=== PATIENT | female | born 1940 ===

== ENCOUNTER 2016-12-30 13:27 | Emergency (ER) | payer MEDICARE ==
[2016-12-30 13:28] VITALS: BMI 24.5
[2016-12-30 13:41] VITALS: RESP 16; TEMP 98.4
--- NOTE | 2016-12-30 14:30 | ED PDOC ---
Arrival/HPI - General Chief Complaint: Abnormal Skin Integrity Time Seen by Provider: 12/30/16 14:00 Historian: Patient - History of Present Illness Narrative History of Present Illness (Text): 12/30/16 14:15 Marice Garcia is a 76 year old male, whose past medical history includes hypertension, who presents to the complaining of irritation to bilateral axilla area for two weeks. Patient reports that 2 weeks ago she went to get a breast ultrasound and ever since the application of gel, the patient has been feeling irritation and itchiness to bilateral axilla are. Patient notes she began to shower twice a day to see if there was some relief, but there was no significant difference. Patient denies fever, shortness of breath, chest pain, headache or other complaints. PMD: Dr. Grier 12/30/16 18:37 Time/Duration: > week (2 weeks) Symptom Onset: Gradual Symptom Course: Unchanged Past Medical History - Provider Review Nursing Documentation Reviewed: Yes - Tetanus Immunization Tetanus Immunization: Unknown - Cardiac Hx Hypertension: Yes Hx Pacemaker: No - Pulmonary Hx Respiratory Disorders: No - Neurological Hx Neurological Disorder: No Hx Paralysis: No - HEENT Hx HEENT Disorder: Yes Hx Cataracts: Yes (HAD SURGERY) - Renal Hx Renal Disorder: No - Endocrine/Metabolic Hx Endocrine Disorders: No - Hematological/Oncological Hx Blood Disorders: Yes Hx Anemia: Yes Hx Blood Transfusions: No - Integumentary Hx Dermatological Disorder: No - Musculoskeletal/Rheumatological Hx Musculoskeletal Disorders: Yes Hx Back Pain: Yes (LUMBAR) - Gastrointestinal Hx Gastrointestinal Disorders: Yes (CONSTIPATION) Hx Gastritis: Yes - Genitourinary/Gynecological Hx Genitourinary Disorders: No - Psychiatric Hx Substance Use: No - Surgical History Hx Appendectomy: Yes Hx Cataract Extraction: Yes (BILATERAL) Other/Comment: EXC.BILATERAL axillary cysts - Anesthesia Hx Anesthesia: Yes - Suicidal Assessment Feels Threatened In Home Enviroment: No Family/Social History - Physician Review Nursing Documentation Reviewed: Yes Family/Social History: Unknown Family HX Smoking Status: Never Smoked Hx Alcohol Use: No Hx Substance Use: No Hx Substance Use Treatment: No Allergies/Home Meds Allergies/Adverse Reactions: Allergies No Known Allergies Allergy (Verified 12/30/16 13:31) Home Medications: Home Meds Medication Instructions Recorded Confirmed Furosemide [Furosemide] 40 mg PO DAILY 12/26/14 12/30/16 Losartan/Hydrochlorothiazide 1 tab PO DAILY 12/26/14 12/30/16 [Hyzaar 100-25 Tablet] Spironolactone [Aldactone] 25 mg PO DAILY 12/26/14 12/30/16 Metoprolol Tartrate [Lopressor] 50 mg PO BID 12/30/16 12/30/16 Multivit-Min/FA/Lycopen/Lutein 1 tab PO DAILY 12/30/16 12/30/16 [Centrum Silver Tablet] Review of Systems - Review of Systems Constitutional: absent: Fevers Respiratory: absent: SOB Cardiovascular: absent: Chest Pain Skin: Other (skin irritation on bilateral axilla region) Physical Exam Vital Signs Reviewed: Yes Vital Signs Temp Pulse Resp BP Pulse Ox 12/30/16 15:13 75 16 145/62 100 12/30/16 13:34 98.4 F 70 16 160/81 H 96 Temperature: Afebrile Blood Pressure: Hypertensive Pulse: Regular Respiratory Rate: Normal Appearance: Positive for: Well-Appearing, Non-Toxic, Comfortable Pain Distress: None Mental Status: Positive for: Alert and Oriented X 3 - Systems Exam Head: Present: Atraumatic, Normocephalic Pupils: Present: PERRL Extroacular Muscles: Present: EOMI Conjunctiva: Present: Normal Respiratory/Chest: Present: Clear to Auscultation, Good Air Exchange. No: Respiratory Distress, Accessory Muscle Use Cardiovascular: Present: Regular Rate and Rhythm, Normal S1, S2. No: Murmurs Neurological: Present: GCS=15, CN II-XII Intact, Speech Normal Skin: Present: Warm, Dry, Normal Color, Erythematous (erythematous patches in bilateral axilla consistent with excema/contact dermatitis). No: Rashes Psychiatric: Present: Alert, Oriented x 3, Normal Insight, Normal Concentration Medical Decision Making ED Course and Treatment: 12/30/16 Impression: 76 year old female with erythematous patches in bilateral axilla. Differential Diagnosis included but are not limited to: allergic reaction Plan: -- Benadryl -- Reassess and disposition Progress Notes: Reevaluation: On reevaluation the patient is in no acute distress. I have discussed the results and plan with the patient, who expresses understanding. Patient given the opportunity to ask question, all questions were answered and there is agreement with the plan to discharge the patient home. Patient is stable for discharge. She was advised to keep the area clean, but moist and to follow up with vacuum truck driver. - Medication Orders Current Medication Orders: Discontinued Medications Diphenhydramine HCl (Benadryl) 12.5 mg PO STAT STA Stop: 12/30/16 14:41 Last Admin: 12/30/16 14:50 Dose: 12.5 mg - Scribe Statement The provider has reviewed the documentation as recorded by the Chris Joe Provider Scribe Attestation: All medical record entries made by the Scribe were at my direction and personally dictated by me. I have reviewed the chart and agree that the record accurately reflects my personal performance of the history, physical exam, medical decision making, and the department course for this patient. I have also personally directed, reviewed, and agree with the discharge instructions and disposition. Disposition/Present on Arrival - Present on Arrival Any Indicators Present on Arrival: No History of DVT/PE: No History of Uncontrolled Diabetes: No Urinary Catheter: No History of Decub. Ulcer: No History Surgical Site Infection Following: None - Disposition Have Diagnosis and Disposition been Completed?: Yes Diagnosis: Contact dermatitis Disposition: HOME/ ROUTINE Disposition Time: 15:00 Patient Plan: Discharge Condition: IMPROVED Discharge Instructions (ExitCare): Contact Dermatitis (ED) Additional Instructions: FOLLOW UP WITH DEPUTY SHERIFF K[facility] HANDLER IN 1-2 DAYS RETURN TO THE ED WITH ANY WORSENING OR CONCERNING SYMPTOMS. Prescriptions: Hydrocortisone 1% Cream [Cortizone 1% Cream] 1 appl TP BID #1 tube Referrals: Indra Dykes MD [Primary Care Provider] - Follow up with primary Forms: [employer] (Welsh)
[2016-12-30] MEDS ORDERED: DiphenhydrAMINE 12.5 mg/5 ml LIQ UD (5 ml) PO STA (14:40)
[2016-12-30 15:23] VITALS: BP 145/62; PULSE 75; O2SAT 100
== END 2016-12-30 15:13 | disposition home or self-care (01) ==
LOC: ED 13:27
DX: L25.9 Unspecified contact dermatitis, unspecified cause (principal); I10 Essential (primary) hypertension

== ENCOUNTER 2017-11-11 16:25 | Inpatient (IN) | payer MEDICARE ==
[2017-11-11 16:37] VITALS: BMI 23.8
--- NOTE | 2017-11-11 16:50 | ED PDOC ---
Arrival/HPI - General Time Seen by Provider: 11/11/17 16:34 Historian: Patient - History of Present Illness Narrative History of Present Illness (Text): 11/11/17 16:43 77 year old female, pmh including htn, ndka, complaining of epigastric and lt. shoulder pain x 1 week. Pt. stated that she has epigastric pain, associated with lt. shoulder pain, no tearing pain, no fever or chills, no palpitation, no numbness or tingling, no change in vision, called the pmd and told to come to the Emergency room for evaluation. Pt. has no leg or back pain, no palpitation, no lower abdominal pain, no other medical or psychological complaints. Past Medical History - Provider Review Nursing Documentation Reviewed: Yes - Tetanus Immunization Tetanus Immunization: Unknown - Cardiac Hx Hypertension: Yes Hx Pacemaker: No - Pulmonary Hx Respiratory Disorders: No - Neurological Hx Neurological Disorder: No Hx Paralysis: No - HEENT Hx HEENT Disorder: Yes Hx Cataracts: Yes (HAD SURGERY) - Renal Hx Renal Disorder: No - Endocrine/Metabolic Hx Endocrine Disorders: No - Hematological/Oncological Hx Blood Disorders: Yes Hx Anemia: Yes Hx Blood Transfusions: No - Integumentary Hx Dermatological Disorder: No - Musculoskeletal/Rheumatological Hx Musculoskeletal Disorders: Yes Hx Back Pain: Yes (LUMBAR) - Gastrointestinal Hx Gastrointestinal Disorders: Yes (CONSTIPATION) Hx Gastritis: Yes - Genitourinary/Gynecological Hx Genitourinary Disorders: No - Psychiatric Hx Substance Use: No - Surgical History Hx Appendectomy: Yes Hx Cataract Extraction: Yes (BILATERAL) Other/Comment: EXC.BILATERAL axillary cysts - Anesthesia Hx Anesthesia: Yes - Suicidal Assessment Feels Threatened In Home Enviroment: No Family/Social History - Physician Review Nursing Documentation Reviewed: Yes Family/Social History: Unknown Family HX Smoking Status: Never Smoked Hx Alcohol Use: No Hx Substance Use: No Hx Substance Use Treatment: No Allergies/Home Meds Allergies/Adverse Reactions: Allergies No Known Allergies Allergy (Verified 12/30/16 13:31) Home Medications: Home Meds Medication Instructions Recorded Confirmed Furosemide 40 mg PO DAILY 12/26/14 12/30/16 Losartan/Hydrochlorothiazide 1 tab PO DAILY 12/26/14 12/30/16 [Hyzaar 100-25 Tablet] Spironolactone [Aldactone] 25 mg PO DAILY 12/26/14 12/30/16 Metoprolol Tartrate [Lopressor] 50 mg PO BID 12/30/16 12/30/16 Multivit-Min/FA/Lycopen/Lutein 1 tab PO DAILY 12/30/16 12/30/16 [Centrum Silver Tablet] Review of Systems - Review of Systems Constitutional: absent: Fatigue, Fevers Eyes: absent: Vision Changes ENT: absent: Hearing Changes Respiratory: absent: SOB, Cough Cardiovascular: absent: Chest Pain Gastrointestinal: Abdominal Pain. absent: Diarrhea, Nausea, Vomiting Musculoskeletal: Arthralgias. absent: Back Pain, Joint Swelling, Myalgias Skin: absent: Rash, Pruritis Neurological: absent: Headache, Dizziness Psychiatric: absent: Anxiety, Depression, Suicidal Ideation Physical Exam Vital Signs Reviewed: Yes Vital Signs Temp Pulse Resp BP Pulse Ox 11/11/17 19:06 209/94 H 11/11/17 16:38 98.3 F 68 18 201/104 H 97 Temperature: Afebrile Blood Pressure: Hypertensive Pulse: Regular Respiratory Rate: Normal Appearance: Positive for: Well-Appearing, Non-Toxic Pain Distress: Moderate Mental Status: Positive for: Alert and Oriented X 3 - Systems Exam Head: Present: Atraumatic, Normocephalic Pupils: Present: PERRL Extroacular Muscles: Present: EOMI Conjunctiva: Present: Normal Mouth: Present: Moist Mucous Membranes Pharnyx: No: ERYTHEMA, EXUDATE Nose (External): Present: Atraumatic. No: Abrasion, Contusion, Laceration Nose (Internal): Present: Normal Inspection, No Active Bleeding. No: Rhinorrhea Neck: Present: Normal Range of Motion Respiratory/Chest: Present: Clear to Auscultation, Good Air Exchange. No: Respiratory Distress, Accessory Muscle Use Cardiovascular: Present: Regular Rate and Rhythm, Normal S1, S2. No: Murmurs Abdomen: Present: Tenderness (+epigastric tenderness, no cva tenderness). No: Distention, Peritoneal Signs, Rebound, Guarding Back: Present: Normal Inspection. No: CVA Tenderness, Midline Tenderness, Paraspinal Tenderness, Pain with Leg Raise, Decubitus Ulcer Upper Extremity: Present: Normal Inspection, Other (Lt. shoulder: no tenderness or swelling, FROM without limitation, sensation intact, motor 5/5, +radial pulse, capillary refill< 2 seconds, neurovascular intact. ). No: Cyanosis, Edema Lower Extremity: Present: Normal Inspection. No: Edema Neurological: Present: GCS=15, CN II-XII Intact, Speech Normal, Motor Func Grossly Intact, Gait Normal, Memory Normal Skin: Present: Warm, Dry, Normal Color. No: Rashes Psychiatric: Present: Alert, Oriented x 3, Normal Insight, Normal Concentration Medical Decision Making ED Course and Treatment: 11/11/17 16:54 -Labs/trop/bnp/lipase/ua -ekg -cxr -gallbladder sonogram -IVF @ 75cc/hr/pepcid -Observe and reassess 11/11/17 18:29 -EKG: NSR @ 67 BPM, no ST elevation or depression, no T wave inversion -Chest X-Ray show Similar cardiomegaly. No interval acute cardiopulmonary pathology noted. -Gallbladder sonogram show No evidence of cholelithiasis. Normal caliber CBD for age. -Labs show no acute findings except BUN 30 and creatine 1.3 (dehydrated, IVF ordered) -Mag within normal limit -Lipase within normal limit -BNP is 1590 with no previous comparison, cxr show cardiomegally, IV lasix 20 ordered for her BNP and her BP -Trop is negative for the first set -Urinalysis ordered and pending -Pt. still has pain, morphine/nitro SL with aspirin ordered, will admit her for CHF and ACS rule out. 11/11/17 18:30 -I spoke to the hospitalist DR. Cruz about this case, discussed about the labs/radiology result and agreed to admit. 11/11/17 18:47 -Pt. now request to be admitted to Dr. Ross's service as Dr. Ross pass by the ER (pt. stated that Dr. Ross was her PCP), I spoke to Dr. Ross about this case, discussed about the labs/radiology result and agreed to admit to her service and request Dr. Kumar (Dietitian) and Dr. Bynum for the consult. -I paged the hospitalist, pending for call back. -Case discussed with Dr. Buck, he agreed on the treatment and admission plan. 11/11/17 18:52 -I spoke to Dr. Cruz about the situation, Dr. Cruz awared of the admission goes to Dr. Ross. 11/11/17 20:19 -I was inform by the ENVELOPE PATTERNMAKER that the patient's BP is still high, vasotec 1.25mg IV ordered. She will go up to the telemetry floor soon. - Lab Interpretations Lab Results: 11/11/17 17:15 11/11/17 17:15 Lab Results 11/11/17 17:15: Digoxin < 0.4 L 11/11/17 17:15: WBC 6.8, RBC 3.93, Hgb 12.0, Hct 36.7, MCV 93.4, MCH 30.5, MCHC 32.7, RDW 13.7, Plt Count 214, MPV 10.1, Gran % 56.6, Lymph % (Auto) 25.9, [place] % (Auto) 9.5 H, Eos % (Auto) 7.6 H, Baso % (Auto) 0.4, Gran # 3.87, Lymph # (Auto) 1.8, [place] # (Auto) 0.7 H, Eos # (Auto) 0.5, Baso # (Auto) 0.03 11/11/17 17:15: Sodium 141, Potassium 4.4, Chloride 107, Carbon Dioxide 24, Anion Gap 15, BUN 30 H, Creatinine 1.3 H, Est GFR ( Amer) 48, Est GFR (Non-Af Amer) 40, Random Glucose 122 H, Calcium 8.9, Magnesium 2.0, Total Bilirubin 0.4, AST 34, ALT 23, Alkaline Phosphatase 97, Lactate Dehydrogenase 526, Total Creatine Kinase 52, Troponin I 0.01, NT-Pro-B Natriuret Pep 1590 H, Total Protein 7.6, Albumin 3.9, Globulin 3.8, Albumin/Globulin Ratio 1.0 L, Lipase 31 - RAD Interpretation Radiology Orders: 11/11/17 16:50 CHEST PORTABLE [RAD] Stat GALL BLADDER [US] Stat Chest xray: Date of service: 11/11/2017 HISTORY: epigastric pain x 1 week COMPARISON: 04/10/2014 FINDINGS: LUNGS: No active pulmonary disease. PLEURA: No significant pleural effusion identified, no pneumothorax apparent. CARDIOVASCULAR: Cardiomegaly-similar. Pulmonary vasculature probably within normal limits. OSSEOUS STRUCTURES: No significant abnormalities. VISUALIZED UPPER ABDOMEN: Normal. OTHER FINDINGS: None. IMPRESSION: Similar cardiomegaly. No interval acute cardiopulmonary pathology noted. Gallbladder sonogram: Date of service: 11/11/2017 HISTORY: epigastric pain x 1 week COMPARISON: Correlation is made to chest CT scan of the chest, abdomen pelvis dated 04/20/19 17 TECHNIQUE: Sonographic evaluation of the right upper quadrant of the abdomen. FINDINGS: LIVER: Measures 14.6 cm in length. Normal echogenicity of the liver parenchyma. No mass. No intrahepatic bile duct dilatation. GALLBLADDER: Unremarkable. No gallstones. COMMON BILE DUCT: Measures 7 mm. No stones. Not dilated. PANCREAS: Unremarkable as visualized. No mass. No ductal dilatation. RIGHT KIDNEY: Measures 11.8 x 4.6 x 5.2 cm in length. Upper pole cyst measuring 3.0 x 2.4 x 2.2 cm. Lower pole cyst measuring 4.2 x 3.7 x 3.2 cm. Normal echogenicity. No calculus, mass, or hydronephrosis. AORTA: No aneurysmal dilatation. IVC: Unremarkable. OTHER FINDINGS: None . IMPRESSION: No evidence of cholelithiasis. Normal caliber CBD for age. Mud Analysis Supervisor: Radiologist - EKG Interpretation EKG Interpretation (Text): 11/11/17 16:55 -EKG: NSR @ 67 BPM, no ST elevation or depression, no T wave inversion Interpreted by ED Physician: Yes Type: 12 lead EKG Comparison: Com.w/previous EKG - Medication Orders Current Medication Orders: Discontinued Medications Aspirin (Aspirin) 325 mg PO STAT STA Stop: 11/11/17 18:29 Last Admin: 11/11/17 19:06 Dose: 325 mg Famotidine (Pepcid) 20 mg IVP STAT STA Stop: 11/11/17 16:51 Last Admin: 11/11/17 17:15 Dose: 20 mg IVP Administration Document 11/11/17 17:15 HI (Rec: 11/11/17 17:29 HI [facility]) Charges for Administration # of IVP Administrations 1 Furosemide (Lasix) 20 mg IVP ONCE ONE Stop: 11/11/17 18:29 Last Admin: 11/11/17 19:06 Dose: 20 mg MAR Blood Pressure Document 11/11/17 19:06 HI (Rec[facility] 11[facility]11/17 19:06 [facility] Blood Pressure Blood Pressure (100/60-150/90) 209/94 IVP Administration Document 11/11/17 19:06 HI (Rec: 11/11/17 19:06 [email or web address] Charges for Administration # of IVP Administrations 1 Morphine Sulfate (Morphine) 4 mg IVP STAT STA Stop: 11/11/17 18:29 Last Admin: 11/11/17 19:06 Dose: 4 mg MAR Pain Assessment Document 11/11/17 19:06 HI (Rec: 11/11/17 19:06 [facility] Pain Reassessment Is this a pain reassessment? Yes Sleep Is patient sleeping during reassessment? No Pain Scale Used Protocol: PSCALES Pain Scale Used Numeric Location Pain Location Body Site Chest IVP Administration Document 11/11/17 19:06 HI (Rec: 11/11/17 19:06 [email or web address] Charges for Administration # of IVP Administrations 1 Nitroglycerin (Nitrostat Sl Tab) 0.3 mg SL STAT STA Stop: 11/11/17 18:29 Last Admin: 11/11/17 19:07 Dose: 0.3 mg - PA / STRINGING MACHINE OPERATOR / Resident Statement MD/DO has reviewed & agrees with the documentation as recorded. Disposition/Present on Arrival - Present on Arrival Any Indicators Present on Arrival: No History of DVT/PE: No History of Uncontrolled Diabetes: No Urinary Catheter: No History of Decub. Ulcer: No History Surgical Site Infection Following: None - Disposition Have Diagnosis and Disposition been Completed?: Yes Diagnosis: CHF (congestive heart failure), Epigastric pain Disposition: HOSPITALIZED Disposition Time: 18:31 Patient Plan: Admission, Observation, Telemetry Patient Problems: Current Active Problems Problem Status Onset CHF (congestive heart failure) Acute Epigastric pain Acute Condition: GUARDED
[2017-11-11] MEDS ORDERED: Sodium Chloride 0.9% 1,000 ML IV SCH (17:00)
--- NOTE | 2017-11-11 17:14 | RAD ---
Date of service: 11/11/2017 HISTORY: epigastric pain x 1 week COMPARISON: 04/10/2014 FINDINGS: LUNGS: No active pulmonary disease. PLEURA: No significant pleural effusion identified, no pneumothorax apparent. CARDIOVASCULAR: Cardiomegaly-similar. Pulmonary vasculature probably within normal limits. OSSEOUS STRUCTURES: No significant abnormalities. VISUALIZED UPPER ABDOMEN: Normal. OTHER FINDINGS: None. IMPRESSION: Similar cardiomegaly. No interval acute cardiopulmonary pathology noted.
[2017-11-11 17:34] LABS: BASO # 0.03 K/mm3 (0.0-2.0); BASO % 0.4 % (0.0-3.0); EOS # 0.5 (0.0-0.7); EOS % 7.6 % (1.5-5.0); GRAN # 3.87 (1.4-6.5); GRAN % 56.6 % (50.0-68.0); LYMPH # 1.8 (1.2-3.4); LYMPH % 25.9 % (22.0-35.0); MEAN CELL VOLUME 93.4 fl (80.0-105.0); MEAN CORPUSCULAR HEMOGLOBIN 30.5 pg (25.0-35.0); MEAN CORPUSCULAR HGB CONC 32.7 g/dl (31.0-37.0); MEAN PLATELET VOLUME 10.1 fl (7.0-11.0); MONO # 0.7 (0.1-0.6); MONO % 9.5 % (1.0-6.0); RBC 3.93 10^6/uL (3.5-6.1); RED CELL DISTRIBUTION WIDTH 13.7 % (11.5-14.5); WHITE BLOOD COUNT 6.8 10^3/ul (4.5-11.0)
[2017-11-11 17:44] LABS: ALBUMIN 3.9 g/dL (3.0-4.8); CALCIUM 8.9 mg/dL (8.4-10.5)
[2017-11-11 17:55] LABS: TROPONIN I 0.01 ng/mL
--- NOTE | 2017-11-11 18:04 | US ---
Date of service: 11/11/2017 HISTORY: epigastric pain x 1 week COMPARISON: Correlation is made to chest CT scan of the chest, abdomen pelvis dated 04/19/2016 TECHNIQUE: Sonographic evaluation of the right upper quadrant of the abdomen. FINDINGS: LIVER: Measures 14.6 cm in length. Normal echogenicity of the liver parenchyma. No mass. No intrahepatic bile duct dilatation. GALLBLADDER: Unremarkable. No gallstones. COMMON BILE DUCT: Measures 7 mm. No stones. Not dilated. PANCREAS: Unremarkable as visualized. No mass. No ductal dilatation. RIGHT KIDNEY: Measures 11.8 x 4.6 x 5.2 cm in length. Upper pole cyst measuring 3.0 x 2.4 x 2.2 cm. Lower pole cyst measuring 4.2 x 3.7 x 3.2 cm. Normal echogenicity. No calculus, mass, or hydronephrosis. AORTA: No aneurysmal dilatation. IVC: Unremarkable. OTHER FINDINGS: None . IMPRESSION: No evidence of cholelithiasis. Normal caliber CBD for age.
[2017-11-11] MEDS ORDERED: Morphine 4 mg/ml ISec IVP STA (18:28)
[2017-11-11 20:09] LABS: PH,URINE 6.5 (4.7-8.0); URINE BILIRUBIN NEGATIVE (NEGATIVE); URINE BLOOD TRACE-INTACT (NEGATIVE); URINE GLUCOSE (UA) NEGATIVE (NEGATIVE); URINE LEUKOCYTE ESTERASE NEGATIVE Leu/uL (NEGATIVE); URINE PROTEIN TRACE mg/dL (<30 mg/dL); URINE UROBILINOGEN 0.2 E.U./dL (<1 E.U./dL)
[2017-11-11 20:10] LABS: URINE APPEARANCE CLEAR (CLEAR); URINE COLOR LIGHT YELLOW (YELLOW)
[2017-11-11] MEDS ORDERED: EnalaprilAT 1.25 mg/ml Inj IVP STA (20:18)
[2017-11-11 20:20] LABS: URINE BACTERIA NEG (NEG); URINE EPITHELIAL CELLS 0 - 2 /hpf (0-5); URINE RBC 0 - 2 /hpf (0-2); URINE WBC NEGATIVE /hpf (0-6)
--- NOTE | 2017-11-12 07:19 | CARD ---
APPROVED REPORT Date of service: 11/11/2017 EKG Measurement Heart [id number] VT 140P0 [id number] <Conclusion> Normal sinus rhythm Q in lll PRWP LVH by voltage NSSTW changes
--- NOTE | 2017-11-12 08:50 | HP ---
The patient was seen and examined on the bedside in the emergency room on 11/11/2017. This history and physical is for 11/11/2017. CHIEF COMPLAINTS: Epigastric pain, shoulder pain. HISTORY OF PRESENT ILLNESS: Ms. Marcie Garcia, 77-year-old my private patient, well known from my office and last hospital admissions. Came with pain in the epigastric and left shoulder. The patient states that she has epigastric pain associated with shoulder pain. No tearing pain. No fever, chills. No palpitation. No numbness or tingling sensation. No change in vision. The patient has no leg or back pain. No headache. No dizziness. PAST MEDICAL HISTORY: Hypertension, cataract surgery, anemia, back pain, constipation, gastritis, appendectomy, bilateral axillary cyst. FAMILY HISTORY: Father and mother, noncontributory. HABITS: Never smoked. No drugs. No ethanol. ALLERGIES: THE PATIENT IS NOT ALLERGIC WITH ANY MEDICATIONS. HOME MEDICATIONS: Furosemide, losartan, spironolactone, metoprolol, multivitamins. REVIEW OF SYSTEMS: The patient was seen and examined on the bedside. was standing on the bedside also in ER. No fever. No chills. No fatigue. No vision changes. No hearing changes. No shortness of breath or cough. No chest pain. No diarrhea, nausea, vomiting. No back pain, joint swelling, myalgia. No rash or pruritus. No headache or dizziness. No anxiety, depression or suicidal ideations. PHYSICAL EXAMINATION: VITAL SIGNS: Temperature 98.3, pulse 68, respiratory rate 18, blood pressure 201/104, pulse 97. HEENT: Head normocephalic, atraumatic. Eyes PERRLA. Extraocular muscles intact. Conjunctivae clear. Nose patent. Mucous membrane moist. NECK: Supple. No carotid bruit. No JVD or thyromegaly. CHEST: Bilaterally symmetrical. HEART: S1 and S2 positive. LUNGS: Clear to auscultation. ABDOMEN: Soft. Bowel sounds positive. No organomegaly. EXTREMITIES: No edema. No cyanosis. NEUROLOGICAL: The patient is awake and alert. Follows simple commands. LABORATORY DATA: White blood cells 6.8, hemoglobin 12, hematocrit 36.7, platelets of 214. Sodium 141, potassium 4.4, BUN noted , creatinine 1.3, glucose 122. ASSESSMENT AND PLAN: Ms. Marcie Ivancic, 77-year-old lady with renal insufficiency, hyperglycemia. Chest x-ray shows cardiomegaly. Ultrasound of the abdomen done. No evidence of cholelithiasis. Normal caliber common bile duct for age. EKG done. Has exacerbation of congestive heart failure, epigastric pain, accelerated hypertension, noncompliant with her medications, cataract surgery, history of anemia, history of back pain, constipation, history of appendectomy. We admitted the patient. Consulted called with Dr. Kumar and Dr. Bynum. Last blood pressure was 127/78. Started on Lasix and spironolactone. Gastrointestinal, deep venous thrombosis prophylaxis. Repeat labs. We will follow up. Ana Ross MD MTDD
[2017-11-12] MEDS: Multivitamin With Minerals Tab PO SCH (10:26)
--- NOTE | 2017-11-12 10:34 | RAD ---
Date of service: 11/12/2017 PROCEDURE: Radiographs of the Left Shoulder HISTORY: pain COMPARISON: No prior. FINDINGS: BONES: No acute fracture or destructive bony lesion identified. JOINTS: No dislocation identified however degenerative changes seen the acromioclavicular and glenohumeral joints with potential limited cephalad subluxation of the humerus relative to the glenoid process. SOFT TISSUES: Calcific tendinopathy is suggested superolateral to the greater tuberosity proximal left humerus. OTHER FINDINGS: None. IMPRESSION: No acute fracture dislocation although limited subluxation of left humerus is question cephalad. This is not a definitive finding and can be simulated by positioning. Follow-up MRI or CT can be utilized for added characterization. Calcific tendinopathy suggested.
[2017-11-12 10:53] LABS: IRON 55 ug/dL (45-180)
[2017-11-12 10:58] LABS: TROPONIN I 0.04 ng/mL
[2017-11-12 11:02] LABS: % IRON SATURATION 18 % (20-55); TOTAL IRON BINDING CAPACITY 310 ug/dL (265-497)
[2017-11-12] MEDS ORDERED: MethylPREDNISolone Depo 40 mg/ml Inj IM ONE (13:02)
[2017-11-12] MEDS ORDERED: Bupivacaine 0.5% Inj(30mL) IJ ONE (13:02)
--- NOTE | 2017-11-12 13:55 | CON ---
DATE: 11/12/2017 REASON FOR CONSULTATION: Cardiac evaluation, admitted with right shoulder pain and epigastric pain. BRIEF CLINICAL HISTORY: This is a 77-year-old female with past medical history significant for hypertension, back pain, right shoulder pain, admitted with complaint of epigastric pain, sharp and is going all the way to the back and also right shoulder pain and the right shoulder pain is painful on movement of the right shoulder. Denies any chest pain. Denies any shortness of breath. Denies any palpitation. PAST HISTORY: Significant for hypertension, gastritis and appendicitis in the past, history of appendectomy, history of ventral hernia repair [address] Rob Santamaria. PAST SURGICAL HISTORY: Significant for cataract surgery, history of appendectomy and history of removal of bilateral axillary cyst and history of ventral hernia repair after appendectomy. SOCIAL HISTORY: Denies smoking. Denies any history of alcohol abuse. FAMILY HISTORY: Noncontributory. ALLERGIES: NO KNOWN DRUG ALLERGY TO ANY MEDICATION. CURRENT MEDICATIONS: The patient is taking furosemide, losartan, spironolactone, metoprolol, multivitamin. REVIEW OF SYSTEMS: As per HPI. PHYSICAL EXAMINATION: VITAL SIGNS: As follows: Temperature afebrile, heart rate 71, blood pressure ____. HEENT: PERRLA, intact. NECK: Supple. No carotid bruits or thyromegaly. CHEST: Clear to auscultation. HEART: S1 and S2 regular. ABDOMEN: Soft. EXTREMITIES: Clubbing and cyanosis negative. DATA: EKG shows normal sinus, nonspecific ST-T changes, heart rate of 67. Blood workup as follows: WBC 6.8, hemoglobin 12, hematocrit 36.7, platelet count 214. Chemistry shows sodium 141, potassium 4.4, chloride of 107, carbon dioxide 24, anion gap of 13, BUN 30, creatinine 1.3. BNP 5090. IMPRESSION: A 77-year-old female with past medical history of hypertension, questionable history of congestive heart failure, history of cataract surgery in the past, history of ventral hernia repair 20 years ago, admitted with sharp epigastric pain and right shoulder pain. X-ray consistent with mild cardiomegaly and mild pulmonary venous congestion, needs to rule out underlying coronary artery disease. No evidence of acute coronary syndrome at this time. Troponin remains negative. RECOMMENDATIONS: We will get lipid profile, TSH, hemoglobin A1c. We will get echo to assess LV function. Also, we will get stress test to see any evidence of occult coronary ischemia. The patient has baseline renal insufficiency with creatinine clearance of 40 mL. Further recommendations depending on the hospital course. Suggest anemia workup also and workup for epigastric pain. The patient's admitting blood pressure was 201/78, needs to be treated aggressively. Now, blood pressure is much better, not sure if it is secondary to acute exacerbation of pain. The patient was not on medication, but we will resume back on losartan, hydrochlorothiazide, diuretics and we will follow with you. Thank you, Dr. Ross, for providing us the opportunity in taking care of the patient, Marcie Garcia. Júnior Staton MD
[2017-11-12] MEDS: Lidocaine 5% Patch TD SCH (14:13)
--- NOTE | 2017-11-12 15:30 | RAD ---
Date of service: 11/12/2017 PROCEDURE: Radiographs of the Right Shoulder HISTORY: pain rt shoulder COMPARISON: No prior. FINDINGS: BONES: No acute fracture or destructive bony lesion identified. JOINTS: No subluxation or dislocation. Degenerative changes seen the acromioclavicular and glenohumeral joints with calcific tendinosis also suggested. SOFT TISSUES: As above. OTHER FINDINGS: None. IMPRESSION: Degenerative changes seen at the acromioclavicular and glenohumeral joints without fracture or dislocation identified.
--- NOTE | 2017-11-12 17:19 | CARD ---
APPROVED REPORT Date of service: 11/12/2017 EXAM: Two-dimensional and M-mode echocardiogram with Doppler and color Doppler. INDICATION Chest Pain LVFX 2D DIMENSIONS Left Atrium (2D)5.1 (1.6-4.0cm)IVSd1.4 (0.7-1.1cm) LVDd4.6 (3.9-5.9cm)LVOT Diameter2.0 (1.8-2.4cm) PWd1.3 (0.7-1.1cm)LVDs3.0 (2.5-4.0cm) FS (%) 35.5 %LVEF (%)65.0 (>50%) M-Mode DIMENSIONS Aortic Root3.30 (2.2-3.7cm)Aortic Cusp Exc.1.10 (1.5-2.0cm) Aortic Valve AoV Peak Lsjwagzb993.0cm/sAoV VTI51.9cmAO Peak GR.25mmHg LVOT Peak Yttqocje056.0cm/sLVOT VTI28.90cmAO Mean GR.11mmHg MINISTERIO (VMAX)1.92ms8BQY (VTI)1.28vd7IV P 1/2 Lnid131dv Mitral Valve MV E Xrtvxgpi96.7cm/sMV A Aeqtqlxr637.0cm/sE/A ratio0.5 TDI Lateral E' Peak V4.09cm/sMedial E' Peak V4.78cm/sE/Lateral E'14.8 E/Medial E'12.7 Pulmonary Valve PV Peak Eblpfmjh68.2cm/sPV Peak Grad.1mmHg Tricuspid Valve TR Peak Fdctapns358il/sRAP SJSYBZAW28fvYqYC Peak Gr.43mmHg NJCS43kePi LEFT VENTRICLE The left ventricle is normal size. There is mild concentric left ventricular hypertrophy. The left ventricular function is normal.EF-60-65% There is normal LV segmental wall motion. Transmitral Doppler flow pattern is Grade III-reversible restrictive diastolic dysfunction. No left ventricle thrombus noted on this study. There is no ventricular septal defect visualized. There is no left ventricular aneurysm. There is no mass noted in the left ventricle. RIGHT VENTRICLE The right ventricle is normal size. There is normal right ventricular wall thickness. The right ventricular systolic function is normal. ATRIA The left atrium is mildly dilated. The right atrium size is normal. The interatrial septum is intact with no evidence for an atrial septal defect. AORTIC VALVE The aortic valve is calcified and displays decreased opening. There is moderate aortic regurgitation. There is mild to moderate valvular aortic stenosis. There is no aortic valvular vegetation. MITRAL VALVE The mitral valve is thickened but opens well. Mitral regurgitation is mild to moderate. There is no mitral valve stenosis. There is no evidence of mitral valve prolapse. TRICUSPID VALVE The tricuspid valve leaflets are thickened , but open well. There is mild to moderate tricuspid regurgitation.RVSP-53 mof hg. There is mild pulmonary hypertension. There is no tricuspid valve stenosis. There is no tricuspid valve prolapse or vegetation. PULMONIC VALVE The pulmonary valve is normal in structure. There is mild pulmonic valvular regurgitation. There is no pulmonic valvular stenosis. GREAT VESSELS The aortic root is normal in size. The ascending aorta is normal in size. The pulmonary artery is normal. The IVC is normal in size and collapses >50% with inspiration. PERICARDIAL EFFUSION There is no pleural effusion. There is no pericardial effusion. <Conclusion> The left ventricle is normal size. There is mild concentric left ventricular hypertrophy. The left ventricular function is normal.EF-60-65% There is moderate aortic regurgitation. There is mild to moderate valvular aortic stenosis. Mitral regurgitation is mild to moderate. There is mild to moderate tricuspid regurgitation.RVSP-53 mof hg. There is mild pulmonary hypertension. There is mild pulmonic valvular regurgitation.
[2017-11-12 18:20] LABS: FOLATE > 20.0 ng/mL
--- NOTE | 2017-11-12 19:03 | CP.PCM.CON ---
<Ramez Clark - Last Filed: 11/12/17 19:34> History of Present Illness - History of Present Illness History of Present Illness: GI Fellow PGY4, consult note. Marcie Garcia is a 77F with history of HTN, CKD presenting with epigastric pain and shoulder pain. Patient is a poor source of history and details cannot be understood as patient rambles on when asked specific factors i.e. timing, relieving factors, aggravating factors. Shoulder pain does not appear to be associated with epigastric pain. PMHx - as above. PSHx - EGD/CSPY [place] [address] [place]. EGD normal and CSPY with transverse colon with ischemic ulceration and diverticulosis. FMHx - Unclear SocHx - Denies smoking, alcohol use. Past Patient History - Tetanus Immunizations Tetanus Immunization: Unknown - Past Medical History & Family History Past Medical History?: Yes - Past Social History Smoking Status: Never Smoked - CARDIAC Hx Cardiac Disorders: Yes Hx Hypertension: Yes - PULMONARY Hx Respiratory Disorders: No - NEUROLOGICAL Hx Neurological Disorder: No - HEENT Hx HEENT Problems: Yes Hx Cataracts: Yes (b/l sx) - RENAL Hx Chronic Kidney Disease: No - ENDOCRINE/METABOLIC Hx Endocrine Disorders: No - HEMATOLOGICAL/ONCOLOGICAL Hx Blood Disorders: Yes Hx Anemia: Yes - INTEGUMENTARY Hx Dermatological Problems: No - MUSCULOSKELETAL/RHEUMATOLOGICAL Hx Falls: No - GASTROINTESTINAL Hx Gastrointestinal Disorders: Yes (epigastric pain) - GENITOURINARY/GYNECOLOGICAL Hx Genitourinary Disorders: No - PSYCHIATRIC Hx Substance Use: No - SURGICAL HISTORY Hx Surgeries: Yes (salpingophorectomy) Hx Appendectomy: Yes Hx Orthopedic Surgery: Yes (right knee sx) Other/Comment: EXC.BILATERAL axillary cysts - ANESTHESIA Hx Anesthesia: Yes Meds Allergies/Adverse Reactions: Allergies Allergy/AdvReac Type Severity Reaction Status Date / Time No Known Allergies Allergy Verified 12/30/16 13:31 - Medications Medications: Current Medications Famotidine (Pepcid) 40 mg PO HS [facility] Furosemide (Lasix) 40 mg IVP Q12 [facility] Last Admin: 11/12/17 10:26 Dose: 40 mg Lidocaine (Lidoderm) 2 ea TD DAILY [facility] Last Admin: 11/12/17 14:13 Dose: 2 ea Losartan Potassium (Cozaar) 100 mg PO DAILY [facility] Last Admin: 11/12/17 10:26 Dose: 100 mg Metoprolol Tartrate (Lopressor) 50 mg PO BID [facility] Last Admin: 11/12/17 17:08 Dose: 50 mg Multivitamins/Minerals (Therapeutic-M Tab) 1 tab PO DAILY [facility] Last Admin: 11/12/17 10:26 Dose: 1 tab Spironolactone (Aldactone) 25 mg PO DAILY [facility] Last Admin: 11/12/17 10:27 Dose: 25 mg Physical Exam - Constitutional Appears: Non-toxic, No Acute Distress, Chronically Ill - Head Exam Head Exam: NORMAL INSPECTION - Eye Exam Eye Exam: Normal appearance - ENT Exam ENT Exam: Mucous Membranes Moist, Normal Exam - Neck Exam Neck exam: Positive for: Normal Inspection - Respiratory Exam Respiratory Exam: Clear to Auscultation Bilateral, NORMAL BREATHING PATTERN - Cardiovascular Exam Cardiovascular Exam: REGULAR RHYTHM, +S1, +S2 - GI/Abdominal Exam GI & Abdominal Exam: Normal Bowel Sounds, Soft, Tenderness. absent: Organo megaly - Extremities Exam Extremities exam: Positive for: normal inspection - Neurological Exam Neurological exam: Alert, CN II-XII Intact, Oriented x3 - Psychiatric Exam Psychiatric exam: Normal Affect, Normal Mood - Skin Skin Exam: Dry, Normal Color Results - Vital Signs Recent Vital Signs: Last Vital Signs Temp 98.6 F 11/12/17 18:00 Pulse 57 L 11/12/17 18:00 Resp 21 11/12/17 18:00 BP 172/90 H 11/12/17 18:00 Pulse Ox 95 11/12/17 06:00 - Labs Result Diagrams: 11/11/17 17:15 11/11/17 17:15 Labs: Laboratory Results - last 24 hr 11/11/17 11/12/17 11/12/17 19:07 10:30 10:30 Hemoglobin A1c Iron 55 TIBC 310 % Saturation 18 L Lactate Dehydrogenase 413 Total Creatine Kinase 45 Troponin I 0.04 D Triglycerides 61 Cholesterol 147 LDL Cholesterol Direct 68 HDL Cholesterol 59 Vitamin B12 Folate Urine Color Light yellow Urine Appearance Clear Urine pH 6.5 Ur Specific [place] 1.015 Urine Protein Trace H Urine Glucose (UA) Negative Urine Ketones Negative Urine Blood Trace-intact H Urine Nitrate Negative Urine Bilirubin Negative Urine Urobilinogen 0.2 Ur Leukocyte Esterase Negative Urine RBC 0 - 2 Urine WBC Negative Ur Epithelial Cells 0 - 2 Urine Bacteria Neg 11/12/17 11/12/17 10:30 10:30 Hemoglobin A1c 5.8 Iron TIBC % Saturation Lactate Dehydrogenase Total Creatine Kinase Troponin I Triglycerides Cholesterol LDL Cholesterol Direct HDL Cholesterol Vitamin B12 346 Folate > 20.0 Urine Color Urine Appearance Urine pH Ur Specific [place] Urine Protein Urine Glucose (UA) Urine Ketones Urine Blood Urine Nitrate Urine Bilirubin Urine Urobilinogen Ur Leukocyte Esterase Urine RBC Urine WBC Ur Epithelial Cells Urine Bacteria Assessment & Plan - Assessment and Plan (Free Text) Assessment: 77F with epigastric pain #Epigastric pain #HTN #CKD #Shoulder pain #Pulmonary HTN - RVSP 53 #Aortic and Tricuspid Valvular disease PLAN: -Abdominal U/S normal -ECHO results reviewed -Unclear etiology of epigastric pain. Broad differential (Cardiac, dyspepsia, constipation, previous colonic erosion, malignancy... other) -Recommend PPI -CT Abd/pelv with PO contrast only in setting of CKD -We could perform EGD Friday if patient will not be discharged and cardiac etiology ruled out. Otherwise, this can be done as an outpatient procedure. - Date & Time Date: 11/12/17 Time: 19:56 <Abraham Bynum V - Last Filed: 11/12/17 22:19> Meds - Medications Medications: Current Medications Furosemide (Lasix) 40 mg IVP Q12 [facility] Last Admin: 11/12/17 10:26 Dose: 40 mg Lidocaine (Lidoderm) 2 ea TD DAILY [facility] Last Admin: 11/12/17 14:13 Dose: 2 ea Losartan Potassium (Cozaar) 100 mg PO DAILY [facility] Last Admin: 11/12/17 10:26 Dose: 100 mg Metoprolol Tartrate (Lopressor) 50 mg PO BID [facility] Last Admin: 11/12/17 17:08 Dose: 50 mg Multivitamins/Minerals (Therapeutic-M Tab) 1 tab PO DAILY [facility] Last Admin: 11/12/17 10:26 Dose: 1 tab Pantoprazole Sodium (Protonix Ec Tab) 40 mg PO 0600 [facility] Spironolactone (Aldactone) 25 mg PO DAILY [facility] Last Admin: 11/12/17 10:27 Dose: 25 mg Results - Vital Signs Recent Vital Signs: Last Vital Signs Temp 98.6 F 11/12/17 18:00 Pulse 61 11/12/17 18:00 Resp 21 11/12/17 18:00 BP 172/90 H 11/12/17 18:00 Pulse Ox 95 09/26/18 06:00 - Labs Result Diagrams: 11/11/17 17:15 11/11/17 17:15 Labs: Laboratory Results - last 24 hr 11/12/17 11/12/17 11/12/17 10:30 10:30 10:30 Hemoglobin A1c 5.8 Iron 55 TIBC 310 % Saturation 18 L Lactate Dehydrogenase 413 Total Creatine Kinase 45 Troponin I 0.04 D Triglycerides 61 Cholesterol 147 LDL Cholesterol Direct 68 HDL Cholesterol 59 Vitamin B12 Folate 11/12/17 10:30 Hemoglobin A1c Iron TIBC % Saturation Lactate Dehydrogenase Total Creatine Kinase Troponin I Triglycerides Cholesterol LDL Cholesterol Direct HDL Cholesterol Vitamin B12 346 Folate > 20.0 Attending/Attestation - Attestation I have personally seen and examined this patient.: Yes I have fully participated in the care of the patient.: Yes I have reviewed all pertinent clinical information: Yes Notes (Text): This is an addendum to GI consult report dictated by the GI Fellow.The patient was seen and examined earlier. Medical records, lab studies, imagings were reviewed. Last 24 hours events reviewed. Agreed with the above treatment plan as outlined in GI Fellow 's notes with the addition of the following The etiology for her abdominal pain should include PUD colonic lesion and pancreatic lesion should be considered Ultrasound scan reviewed Negative for gallstones Patient had a colonoscopy In 01/01 it showed it was reported patient had a transverse colon ulceration/erosions Would request CT scan of abdomen and pelvis with only PO contrast as for her GFR is low Patient had duodenitis Continue PPI After review of CT Will discuss with Dr. Ross 11/12/17 22:12
--- NOTE | 2017-11-13 03:46 | PN ---
DATE: 11/12/2017 SUBJECTIVE: This is a 77-year-old female. Patient was seen and examined on the bedside on 11/12/2017, still having the pain in both shoulders especially left shoulder, having a blood pressure high, getting different medications. No fever, no chills. No nausea, vomiting, or diarrhea. No hematuria or hematochezia. No headache. No dizziness. No palpitation. PHYSICAL EXAMINATION: VITAL SIGNS: Temperature 98.6, pulse 67, respiratory rate 21, blood pressure 172/90, pulse oximetry 95% on room air. HEENT: Head: Normocephalic, atraumatic. Eyes: PERRLA. Extraocular muscles intact. Conjunctivae clear. Nose patent. Mucous membranes moist. NECK: Supple. No carotid bruit. No JVD or thyromegaly. CHEST: Bilaterally symmetrical. HEART: S1 and S2 positive. LUNGS: Clear to auscultation. ABDOMEN: Soft. Bowel sounds present. No organomegaly. EXTREMITIES: Upper both extremities especially shoulders range of motion is decreased. Lower extremities, no edema, no cyanosis. NEUROLOGIC: Patient is awake and alert. Moving all 4 extremities. No focal deficit. LABORATORY DATA: White blood cells 6.8, hemoglobin 12, hematocrit 36.7, platelets of 214. Sodium 141, potassium 4.1, BUN 30, creatinine 1.3, glucose 122. ASSESSMENT AND PLAN: Ms. Marcie Garcia is a 77-year-old female with renal insufficiency, hyperglycemia, came with epigastric pain, Gastroenterology consult called; hypertension, is on different blood pressure medications; chronic kidney disease; chronic shoulder pain bilaterally, x-rays were done; pulmonary hypertension; right ventricular systolic pressure 53, aortic and tricuspid valve disease. X-rays of the left shoulder shows no acute fracture, dislocation, although limited subluxation of the left humerus, this is not a definite diagnosis as per radiologist, need MRI. Right shoulder also shows degenerative joint disease. Abdominal ultrasound reviewed. Patient has history of gastritis, appendicitis, appendectomy, ventral hernia repair, congestive heart failure, cataract surgery. The patient was admitted with blood pressure of 201/78, getting aggressive treatment for blood pressure. We will call Pulmonary consult. Discussion done with patient. Gastrointestinal and deep venous thrombosis prophylaxes. [facility] We will follow up with you. Ana Ross MD ISABELLA
[2017-11-13] MEDS ORDERED: Oxycodone/Acetaminophen 2.5/325 mg Tab PO STA (06:03)
[2017-11-13] MEDS ORDERED: Barium Sulfate Susp 2.1% w/v, 2.0% w/w 450 mL Bottle PO ONE (06:31)
[2017-11-13] MEDS: Pantoprazole 40 mg EC Tab PO SCH (06:50)
[2017-11-13 08:07] LABS: HEMOGLOBIN 12.6 g/dL (12.0-16.0); MEAN CELL VOLUME 92.6 fl (80.0-105.0); MEAN CORPUSCULAR HEMOGLOBIN 30.1 pg (25.0-35.0); MEAN CORPUSCULAR HGB CONC 32.6 g/dl (31.0-37.0); MEAN PLATELET VOLUME 9.7 fl (7.0-11.0); RBC 4.18 10^6/uL (3.5-6.1); RED CELL DISTRIBUTION WIDTH 13.9 % (11.5-14.5); WHITE BLOOD COUNT 7.8 10^3/ul (4.5-11.0)
[2017-11-13 08:22] LABS: CALCIUM 9.1 mg/dL (8.4-10.5)
--- NOTE | 2017-11-13 08:55 | CON ---
DATE: 11/12/2017 ORTHOPEDIC CONSULT REPORT LOCATION: Room 271, bed 1. TIME SEEN: 1:30 p.m. HISTORY OF PRESENT ILLNESS: The patient was seen for bilateral shoulder pain. At the time, she came in, it was the left side worse than the right. X-ray done on the left shoulder showed glenohumeral and subacromial osteoarthritis as well as AC joint arthritis with increased pain with range of motion where she can only abduct to 60 degrees and rotate 20 degrees. Tender subacromial joint. It appears that she has evidence of a rotator cuff tear, but she can still abduct to functional range of motion, just prior partial rotator cuff tear with osteoarthritis and subacromial impingement and AC joint arthritis. To help her pain which is almost constantly, could inject her shoulder with Depo-Medrol and Marcaine, which she consented to only injected it tonight with Depo-Medrol and Marcaine , then we will see how she does. She wants also the injection of the right shoulder. We have the x-ray of that shoulder and we will reevaluate it tomorrow. FINAL DIAGNOSES: Left greater than right shoulder pain with osteoarthritis, subacromial impingement, and rotator cuff tears. Jose Romeo DO
--- NOTE | 2017-11-13 09:32 | CP.PCM.PN ---
Subjective - Date & Time of Evaluation Date of Evaluation: 11/13/17 Time of Evaluation: 06:50 - Subjective Subjective: Awake, alert, complaining of lower abdominal discomfort Reason for consultation and follow up: Cardiac evaluation of epigastric pain and right shoulder pain. History of hypertension Seen and examined by me and Dr. Staton Objective - Vital Signs/Intake and Output Vital Signs (last 24 hours): Temp Pulse Resp BP Pulse Ox 98.3 F 53 L 18 135/79 94 L 11/13/17 06:00 11/13/17 06:00 11/13/17 06:00 11/13/17 06:00 11/13/17 06:00 Intake and Output: 11/13/17 11/13/17 06:59 18:59 Intake Total 240 Balance 240 - Medications Medications: Current Medications Furosemide (Lasix) 40 mg IVP Q12 [facility] Last Admin: 11/12/17 22:00 Dose: 40 mg Lidocaine (Lidoderm) 2 ea TD DAILY [facility] Last Admin: 11/12/17 14:13 Dose: 2 ea Losartan Potassium (Cozaar) 100 mg PO DAILY [facility] Last Admin: 11/12/17 10:26 Dose: 100 mg Metoprolol Tartrate (Lopressor) 50 mg PO BID [facility] Last Admin: 11/12/17 17:08 Dose: 50 mg Multivitamins/Minerals (Therapeutic-M Tab) 1 tab PO DAILY [facility] Last Admin: 11/12/17 10:26 Dose: 1 tab Pantoprazole Sodium (Protonix Ec Tab) 40 mg PO 0600 [facility] Last Admin: 11/13/17 06:50 Dose: 40 mg Spironolactone (Aldactone) 25 mg PO DAILY [facility] Last Admin: 11/12/17 10:27 Dose: 25 mg - Labs Labs: 11/13/17 07:30 11/13/17 07:30 - Constitutional Appears: No Acute Distress - Eye Exam Eye Exam: Normal appearance - ENT Exam ENT Exam: Mucous Membranes Moist - Respiratory Exam Respiratory Exam: Decreased Breath Sounds, NORMAL BREATHING PATTERN - Cardiovascular Exam Cardiovascular Exam: Bradycardia, +S1, +S2 Additional comments: telemetry SB- 50's - GI/Abdominal Exam GI & Abdominal Exam: Soft, Normal Bowel Sounds Additional comments: lower abdominal discomfort - Extremities Exam Extremities Exam: Normal Capillary Refill - Neurological Exam Neurological Exam: Alert, Awake, Oriented x3 - Psychiatric Exam Psychiatric exam: Anxious - Skin Skin Exam: Dry, Warm Assessment and Plan - Assessment and Plan (Free Text) Assessment: A 77 year old female who came in to the ER due to epigastric pain radiating to right shoulder pain and back. History of hypertension, gastritis, appendectomy,history of ventral hernia repair, cataract surgery, CKD. Unc ontrolled hypertension, SBP 200's on admission, hydralazine given. Troponin normal, no evidence of acute coronary syndrome. ECHO done yesterday-LV normal size, LVEF 65%, moderate AR/MR/TR RVSP 53 mmHg, moderate valvular stenosis, pulmonary hypertension. For stress test today Plan: For Stress test today ECHO done yesterday-LV normal size, LVEF 65%, moderate AR/MR/TR RVSP 53 mmHg moderate valvular stenosis, Pulmonary hypertension. Rule out acute coronary syndrome Heart rate stable Controlled blood pressure GI on consult and work up in progress Xray of shoulder negative for fracture On Lasix 40 mg every 12 hours, Cozaar 100 mg daily,Lopressor 50 mg BID Aldactone 25 mg daily Continue current medications Continue current treatment Further recommendation during hospital course Will follow up Plan and treatment discussed with Dr. Staton
--- NOTE | 2017-11-13 10:17 | CP.PCM.PN ---
<Ramez Clark - Last Filed: 11/13/17 10:14> Subjective - Date & Time of Evaluation Date of Evaluation: 11/13/17 Time of Evaluation: 10:14 - Subjective Subjective: GI Fellow PGY4 patient is complaining of right shoulder pain. She states the stomach pain is not as bad, mostly worried about shoulder. She has been tolerating her diet and no reports of recent vomiting. Objective - Vital Signs/Intake and Output Vital Signs (last 24 hours): Temp Pulse Resp BP Pulse Ox 98.3 F 53 L 18 135/79 94 L 11/13/17 06:00 11/13/17 06:00 11/13/17 06:00 11/13/17 06:00 11/13/17 06:00 Intake and Output: 11/13/17 11/13/17 06:59 18:59 Intake Total 240 Balance 240 - Medications Medications: Current Medications Furosemide (Lasix) 40 mg IVP Q12 [facility] Last Admin: 11/12/17 22:00 Dose: 40 mg Lidocaine (Lidoderm) 2 ea TD DAILY [facility] Last Admin: 11/12/17 14:13 Dose: 2 ea Losartan Potassium (Cozaar) 100 mg PO DAILY [facility] Last Admin: 11/12/17 10:26 Dose: 100 mg Metoprolol Tartrate (Lopressor) 50 mg PO BID [facility] Last Admin: 11/12/17 17:08 Dose: 50 mg Multivitamins/Minerals (Therapeutic-M Tab) 1 tab PO DAILY [facility] Last Admin: 11/12/17 10:26 Dose: 1 tab Pantoprazole Sodium (Protonix Ec Tab) 40 mg PO 0600 [facility] Last Admin: 11/13/17 06:50 Dose: 40 mg Spironolactone (Aldactone) 25 mg PO DAILY [facility] Last Admin: 11/12/17 10:27 Dose: 25 mg - Labs Labs: 11/13/17 07:30 11/13/17 07:30 - Constitutional Appears: Non-toxic, No Acute Distress - Head Exam Head Exam: NORMAL INSPECTION - Eye Exam Eye Exam: EOMI, Normal appearance - ENT Exam ENT Exam: Mucous Membranes Moist - Respiratory Exam Respiratory Exam: Clear to Ausculation Bilateral, NORMAL BREATHING PATTERN - GI/Abdominal Exam GI & Abdominal Exam: Soft, Normal Bowel Sounds. absent: Tenderness - Extremities Exam Extremities Exam: Normal Inspection - Neurological Exam Neurological Exam: Alert, Awake, Oriented x3 - Psychiatric Exam Psychiatric exam: Normal Affect, Normal Mood - Skin Skin Exam: Dry, Normal Color Assessment and Plan - Assessment and Plan (Free Text) Assessment: 77F with epigastric pain #Epigastric pain #HTN #CKD #Right Shoulder pain #Pulmonary HTN - RVSP 53 #Aortic and Tricuspid Valvular disease PLAN: -Abdominal U/S normal -ECHO results reviewed -Unclear etiology of epigastric pain. Broad differential (Cardiac, dyspepsia, constipation, previous colonic erosion, malignancy... other) -Recommend PPI -CT Abd/pelv with PO contrast only in setting of CKD. -We could perform EGD Friday if patient will not be discharged and cardiac etiology ruled out. Otherwise, this can be done as an outpatient procedure. No urgency for GI evaluation at this time. will wait for CT results and cardiology recommendations. <Abraham Bynum V - Last Filed: 11/13/17 23:11> Objective - Vital Signs/Intake and Output Vital Signs (last 24 hours): Temp Pulse Resp BP Pulse Ox 98.3 F 66 20 173/99 H 94 L 11/13/17 16:25 11/13/17 18:09 11/13/17 16:25 11/13/17 18:09 11/13/17 06:00 Intake and Output: 11/13/17 11/14/17 18:59 06:59 Intake Total 540 Balance 540 - Medications Medications: Current Medications Furosemide (Lasix) 40 mg PO DAILY [facility] Lidocaine (Lidoderm) 2 ea TD DAILY [facility] Last Admin: 11/13/17 17:35 Dose: 2 ea Losartan Potassium (Cozaar) 100 mg PO DAILY [facility] Last Admin: 11/13/17 15:16 Dose: 100 mg Metoprolol Tartrate (Lopressor) 50 mg PO BID [facility] Last Admin: 11/13/17 18:09 Dose: 50 mg Multivitamins/Minerals (Therapeutic-M Tab) 1 tab PO DAILY [facility] Last Admin: 11/13/17 15:15 Dose: 1 tab Pantoprazole Sodium (Protonix Ec Tab) 40 mg PO 0600 [facility] Last Admin: 11/13/17 06:50 Dose: 40 mg Spironolactone (Aldactone) 25 mg PO DAILY [facility] Last Admin: 11/13/17 15:17 Dose: 25 mg - Labs Labs: 11/13/17 07:30 11/13/17 07:30 Attending/Attestation - Attestation I have personally seen and examined this patient.: Yes I have fully participated in the care of the patient.: Yes I have reviewed all pertinent clinical information, including history, physical exam and plan: Yes Notes (Text): This is an addendum to GI progress report dictated by the GI Fellow.The patient was seen and examined earlier. Medical records, lab studies, imagings were reviewed. Last 24 hours events reviewed. Agreed with the above treatment plan as outlined in GI Fellow 's notes with the addition of the following CT scan was reviewed no acute findings Sono neg for gallstones Would consider EGD in AM if the patient remains symptomatic 11/13/17 23:08
--- NOTE | 2017-11-13 10:18 | PQF ---
PROVIDER RESPONSE TEXT: Acute on chronic CHF secondary to diastolic dysfunction REVIEWER QUERY TEXT: CHF Acuity and Type Congestive Heart Failure is documented in the Medical Record. Please document the type and acuity (in cludes probable or suspected) Such as: Type: -- Systolic -- Diastolic -- Combined -- Other, please specify Acuity: -- Acute -- Chronic -- Acute on chronic -- Other, please specify Also please document the underlying cause of the CHF (includes probable or suspected) The patient's Clinical Indicators include: Patient admitted with epigastric pain of unclear etiology. ACS ruled out as per your cardiology consu lt. You noted CXR with mild pulmonary venous congestion, BNP elevated at 1590, echo showing normal LVF wi th EF 65%, and patient treated with Lasix IV. Attending notes CHF exacerbation. Please specify if CHF POA , type and acuity if present. Query created by: Tabby Aguilar on 11/13/2017 9:54 AM Electronically signed by: Júnior Staton 11/13/2017 10:15 AM
[2017-11-13] MEDS: Multivitamin With Minerals Tab PO SCH (15:15)
--- NOTE | 2017-11-13 15:49 | PN ---
DATE: 11/13/2017 This note is an addendum to the initial progress note dictated by our nurse practitioner. SUBJECTIVE: Echo reviewed, shows a preserved LV function. CHF most likely secondary to diastolic dysfunction as well as valvular heart disease. We will schedule a stress test today. Further recommendations after the stress test. We will follow. So far, no evidence of acute TX. Suggest to change Lasix to p.o. We will follow with you. Thank you, Dr. Ross for providing us the opportunity in taking care of the patient, Marcie Garcia. Júnior Staton MD
[2017-11-13] MEDS: Lidocaine 5% Patch TD SCH (17:35)
--- NOTE | 2017-11-13 18:46 | CT ---
Date of service: 11/13/2017 PROCEDURE: CT Abdomen and Pelvis with contrast HISTORY: Epigastric pain. COMPARISON: None. TECHNIQUE: Contrast dose: Oral contrast only. Radiation dose: Total exam DLP = 327.96 mGy-cm. This CT exam was performed using one or more of the following dose reduction techniques: Automated exposure control, adjustment of the mA and/or kV according to patient size, and/or use of iterative reconstruction technique. FINDINGS: LOWER THORAX: Residual contrast in the esophagus. No visible stricture, annular or polypoid abnormality apparent. LIVER: Unremarkable. No gross lesion or ductal dilatation. GALLBLADDER AND BILE DUCTS: Unremarkable. PANCREAS: Unremarkable. No gross lesion or ductal dilatation. SPLEEN: Unremarkable. ADRENALS: Unremarkable. No mass. KIDNEYS AND URETERS: Unremarkable. No hydronephrosis. No solid mass. Multiple bilateral simple cysts. Rim calcifications again identified in an otherwise unremarkable cysts situated in the medial aspect left kidney. VASCULATURE: Unremarkable. No aortic aneurysm. BOWEL: Constipation without fecal impaction or obstruction. Diverticulosis without an acute inflammatory component or other associated pathologic process. Severe diverticular disease in the sigmoid colon. Similar findings without appreciable interval change noted on the prior study. APPENDIX: Prior appendectomy. PERITONEUM: Unremarkable. No free fluid. No free air. LYMPH NODES: Unremarkable. No enlarged lymph nodes. BLADDER: Unremarkable. REPRODUCTIVE: Unremarkable. BONES: No acute fracture. OTHER FINDINGS: None. IMPRESSION: No significant or acute findings to account for/ related to the clinical presentation. Additional benign and/or incidental findings described above. No significant interval change compared to the prior examination(s).
--- NOTE | 2017-11-13 23:43 | PQF ---
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 Please specify the disease stage ( includes probable or suspected) Such as: -- Chronic kidney disease Stage 1 -- Chronic kidney disease Stage 2 -- Chronic kidney disease Stage 3 -- Chronic kidney disease Stage 4 -- Chronic kidney disease Stage 5 -- Chronic kidney disease Stage 5, requiring dialysis -- End Stage Renal Disease -- Other, please specify Stages are defined by the [employer] as follows: CKD Stage I GFR >= 90 ml / min per 1.73 m2 and persistent albuminuria CKD Stage 2 GFR between 60 and 89 with persistent albuminuria CKD Stage 3 GFR between 30 and 59 CKD Stage 4 GFR between 15 and 29 CKD Stage 5 GFR between <15 or End Stage Renal Disease The patient's Clinical Indicators include: BUN and creatinine elevated on admission, continuing to rise. Please specify stage of CKD. Query created by: Tabby Aguilar on 11/13/2017 9:56 AM Electronically signed by: Ana Ross MD 11/13/2017 11:40 PM
--- NOTE | 2017-11-14 01:43 | CARD ---
APPROVED REPORT Date of service: 11/13/2017 Protocol: LEXISCAN Test Type: Lexiscan Sestamibi Stress Test Attending Physician: Dr. Júnior Kumar Referring Physician: Dr. Ana Ross Test Indications: Hypertension Height:5 ft 1 in Weight:134lbs Medications: Lasix Cozaar Lopressor [facility]VI Protonix Aldactone Medical History: 77 y/o female hx of shoulder pain hypertension Target HR: 141 bpm Resting ECG: NSR with ST 1/2 mm depression with Horizonta Resting Heart Rate: 58 bpm Resting Blood Pressure: 160/80mmHg Submaximum (85%): 120 bpm PROCEDURE Pharmacologic stress testing was performed using 0.4mg per 5ml of regadenoson given intravenously over 7-10 seconds. Reversal agent aminophyline 100 mg, given intravenously for Other. POST EXERCISE Reason for Termination: Protocol completed Target HR: No Max HR: 57 bpm 53% of Maximum Predicted HR: 141 bpm Exercise duration: 00:38 min:sec, 0 Stage Exercise capacity: 1.0METs Max Blood Pressure: 164/84mmHg Blood Pressure response to exercise: normal resting BP - appropriate response Heart Rate response to exercise: appropriate Chest Pain: No, none Angina index: 0 Arrhythmia: No, none ST Change: No, none from base line Deviation: 0 mm INTERPRETATION Stress EKG Conclusion: Inconclusive IV Lexiscan B/c of abnormal base line EKG, but negative for chest pain,Nuclear scan to follow. Signed by Júnior Kumar Electronically Approved: 11/13/2017 14:08:42 EXAM: Myocardial Perfusion REST/STRESS Stress Test Type: Pharmacologic Imaging Protocol Rest Spect myocardial perfusion imaging was performed in supine position 55 minutes following the injection of 10.8 mCi of Tc-99 Myoview. At peak stress, the patient was injected intravenously with 30.5mCi of Tc-99 tetrofosmin after an infusion time of 0 minutes and 10 seconds. Gated Stress Spect was performed 65 minutes after intravenous Tc-99 Myoview injection. The images were gated to evaluate regional wall motion and calculate ventricular ejection fraction.Images were reconstructed using backfilter projection method in short horizontal and verticle long axis. Spect slices were generated. LV Perfusion The quality of the study is good. The left ventricle is normal in size. The right ventricle is unremarkable. The lung uptake is within normal limits. The distribution of tracer reveals normal uptake pattern throughout the LV myocardium on the stress study. The rest myocardial perfusion study shows no significant change. Wall Motion Wall motion study shows good contractility of the left ventricle. LVEF = 59%. Conclusion 1. Normal SPECT myocardial perfusion study. 2. Normal gated wall motion of the left ventricle. 3. In comparison with the last study of 12/26/2014, there is no significant change
--- NOTE | 2017-11-14 04:21 | CON ---
DATE: 11/13/2017 REFERRING PHYSICIAN: Ana Ross MD HISTORY OF PRESENT ILLNESS: This is a 77-year-old female, known history of hypertension, renal insufficiency, has some chest pain, shoulder pain, also been having right lower quadrant pain. She was seen by Orthopedics and injected in the right shoulder for continued right lower extremity pain, short of breath with exertion. No nausea, no dysuria, leg pain or leg swelling. PAST MEDICAL HISTORY: Renal failure, hypertension, probably has GERD, degenerative joint disease. FAMILY HISTORY: No significant cardiopulmonary disease reported. SOCIAL HISTORY: Nonsmoker, nondrinker. MEDICATIONS: She is on Aldactone 25 mg daily, Cozaar 100 mg daily, Lasix 40 mg daily, lidocaine patch at affected area, metoprolol tartrate 50 mg twice a day, Protonix 40 mg daily, multivitamins daily received. Lasix has been discontinued. REVIEW OF SYSTEMS: No headache, no rhinitis. She admits to have snoring, daytime sleepy and tired. Epigastric/chest pain. Right shoulder pain, abdominal right lower quadrant discomfort. No dysuria, leg pain or leg swelling. PHYSICAL EXAMINATION: GENERAL: No acute distress. VITAL SIGNS: Temperature is 98, heart rate 83, respiratory rate is 20, blood pressure 193/84, pulse ox 95% on room air. HEENT: Moist mucous membrane. Crowded airway. Mallampati score is 4. NECK: Supple. No JVD. LUNGS: Have fair airflow with rhonchi. HEART: S1, S2. ABDOMEN: Positive bowel sounds. Right lower quadrant, some tenderness. EXTREMITIES: No edema. NEUROLOGIC: Awake, alert, follows simple commands. LABORATORY DATA: Shows hemoglobin 12.6, hematocrit 38.7, WBC 7.9, platelet count is 227. Sodium 137, potassium 4.5, chloride 99, bicarbonate 28, BUN 38, creatinine 2, glucose 114, phosphorus 5.1, calcium 9.1, magnesium 2, AST 28, ALT ____, alk phos is 92. Albumin is 4. TSH 0.43. Vitamin B12 is 346. Folate is more than 20. Urinalysis shows WBC negative, RBC 0 to 2. Toxicology, dig level less than 0.4. Had a chest x-ray done on admission shows cardiomegaly, otherwise, unremarkable. Has abdominal ultrasound done in ER shows no evidence of cholelithiasis, normal caliber common bile duct for age. Had a shoulder x-ray done which shows no acute fracture. There is calcific tendinopathy suggested. Had echocardiogram done yesterday, shows right ventricular systolic pressure is 53, mild concentric left ventricular hypertrophy, LV ejection fraction is 60-65, mild valvular heart disease. IMPRESSION AND PLAN: Cardiomyopathy with valvular heart disease and also has pulmonary hypertension, may have sleep apnea syndrome, renal insufficiency, hyperglycemia, hypertension. GI workup is in progress. Also cardiac workup in progress. Careful with sedation, sleep apnea precaution upon discharge. The patient should get attended sleep study. Thank you and we will follow with you. Júnior Moses MD
[2017-11-14] MEDS: Pantoprazole 40 mg EC Tab PO SCH (05:47)
--- NOTE | 2017-11-14 07:09 | CP.PCM.PN ---
Subjective - Date & Time of Evaluation Date of Evaluation: 11/14/17 Time of Evaluation: 06:25 - Subjective Subjective: Easily awake, alert, no distress Reason for consultation and follow up: Cardiac evaluation of epigastric pain and right shoulder pain. History of hypertension Seen and examined by me and Dr. Staton Objective - Vital Signs/Intake and Output Vital Signs (last 24 hours): Temp Pulse Resp BP Pulse Ox 98.9 F 62 20 144/68 96 11/14/17 06:00 11/14/17 06:00 11/14/17 06:00 11/14/17 06:00 11/14/17 06:00 Intake and Output: 11/14/17 11/14/17 06:59 18:59 Intake Total 240 Balance 240 - Medications Medications: Current Medications Furosemide (Lasix) 40 mg PO DAILY [facility] Lidocaine (Lidoderm) 2 ea TD DAILY [facility] Last Admin: 11/13/17 17:35 Dose: 2 ea Losartan Potassium (Cozaar) 100 mg PO DAILY [facility] Last Admin: 11/13/17 15:16 Dose: 100 mg Metoprolol Tartrate (Lopressor) 50 mg PO BID [facility] Last Admin: 11/13/17 18:09 Dose: 50 mg Multivitamins/Minerals (Therapeutic-M Tab) 1 tab PO DAILY [facility] Last Admin: 11/13/17 15:15 Dose: 1 tab Pantoprazole Sodium (Protonix Ec Tab) 40 mg PO 0600 [facility] Last Admin: 11/14/17 05:47 Dose: 40 mg Spironolactone (Aldactone) 25 mg PO DAILY [facility] Last Admin: 11/13/17 15:17 Dose: 25 mg - Labs Labs: 11/13/17 07:30 11/13/17 07:30 - Constitutional Appears: No Acute Distress - Eye Exam Eye Exam: Normal appearance - ENT Exam ENT Exam: Mucous Membranes Moist - Respiratory Exam Respiratory Exam: Decreased Breath Sounds, Clear to Ausculation Bilateral, NORMAL BREATHING PATTERN - Cardiovascular Exam Cardiovascular Exam: +S1, +S2 - GI/Abdominal Exam GI & Abdominal Exam: Soft, Normal Bowel Sounds - Neurological Exam Neurological Exam: Alert, Awake - Psychiatric Exam Psychiatric exam: Normal Affect - Skin Skin Exam: Intact, Warm Assessment and Plan - Assessment and Plan (Free Text) Assessment: A 77 year old female who came in to the ER due to epigastric pain radiating to right shoulder pain and back. History of hypertension, gastritis, appendectomy,history of ventral hernia repair, cataract surgery, chronic kidney disease. Uncontrolled hypertension, SBP 200's on admission, hydralazine given. Troponin normal, no evidence of acute coronary syndrome. Rule out acute coronary syndrome. ECHO done yesterday-LV normal size, LVEF 65%, moderate AR/MR/TR RVSP 53 mmHg, moderate valvular stenosis, pulmonary hypertension. Normal Stress test , LVEF 59%. Plan: Normal Stress test LVEF 59% Heart rate stable Controlled blood pressure GI on consult and work up in progress On Lasix 40 mg every 12 hours, Cozaar 100 mg daily,Lopressor 50 mg BID Aldactone 25 mg daily Continue current medications Continue current treatment Pulmonary on consult Will follow up Plan and treatment discussed with Dr. Staton
--- NOTE | 2017-11-14 07:19 | CP.PCM.PCO ---
Physician Communication Note - Physician Communication Note Physician Communication Note: Rise in Cr. Nephrotoxic meds held. Discussed with nursing to inform primary
[2017-11-14] MEDS: POLYETHYLENE GLYCOL 3350 17 GM/Dose PACKET PO SCH (09:34)
[2017-11-14] MEDS: Multivitamin With Minerals Tab PO SCH (09:35)
[2017-11-14] MEDS: Lidocaine 5% Patch TD SCH (09:37)
--- NOTE | 2017-11-14 09:49 | CP.PCM.PN ---
<Ramez Clark - Last Filed: 11/14/17 09:42> Subjective - Date & Time of Evaluation Date of Evaluation: 11/14/17 Time of Evaluation: 09:42 - Subjective Subjective: GI Fellow PGY4 She is complaining that she has right shoulder pain. She is asking to go home. I explained the CT findings to her. She was apparently wandering into other patients rooms last night and somewhat disoriented. Objective - Vital Signs/Intake and Output Vital Signs (last 24 hours): Temp Pulse Resp BP Pulse Ox 98.9 F 81 20 155/76 H 96 11/14/17 06:00 11/14/17 09:35 11/14/17 06:00 11/14/17 09:35 11/14/17 06:00 Intake and Output: 11/14/17 11/14/17 06:59 18:59 Intake Total 240 Balance 240 - Medications Medications: Current Medications Docusate Sodium (Colace) 100 mg PO BID [facility] Last Admin: 11/14/17 09:34 Dose: 100 mg Lidocaine (Lidoderm) 2 ea TD DAILY [facility] Last Admin: 11/14/17 09:37 Dose: 2 ea Metoprolol Tartrate (Lopressor) 50 mg PO BID [facility] Last Admin: 11/14/17 09:35 Dose: 50 mg Multivitamins/Minerals (Therapeutic-M Tab) 1 tab PO DAILY [facility] Last Admin: 11/14/17 09:35 Dose: 1 tab Pantoprazole Sodium (Protonix Ec Tab) 40 mg PO 0600 [facility] Last Admin: 11/14/17 05:47 Dose: 40 mg Polyethylene Glycol (Miralax) 17 gm PO BID [facility] Last Admin: 11/14/17 09:34 Dose: 17 gm - Labs Labs: 11/13/17 07:30 11/13/17 07:30 - Constitutional Appears: Non-toxic, No Acute Distress - Head Exam Head Exam: NORMAL INSPECTION - Eye Exam Eye Exam: EOMI, Normal appearance - ENT Exam ENT Exam: Mucous Membranes Moist - Respiratory Exam Respiratory Exam: Clear to Ausculation Bilateral, NORMAL BREATHING PATTERN - Cardiovascular Exam Cardiovascular Exam: REGULAR RHYTHM, +S1, +S2 - GI/Abdominal Exam GI & Abdominal Exam: Soft, Normal Bowel Sounds. absent: Tenderness - Extremities Exam Extremities Exam: Normal Inspection - Neurological Exam Neurological Exam: Alert, Awake - Psychiatric Exam Psychiatric exam: Normal Affect, Normal Mood - Skin Skin Exam: Dry, Normal Color Assessment and Plan - Assessment and Plan (Free Text) Assessment: 77F with epigastric pain #Epigastric pain #Constipation #HTN #MARY on CKD #Right Shoulder pain #Pulmonary HTN - RVSP 53 #Aortic and Tricuspid Valvular disease PLAN: -Abdominal U/S normal -CT shows a large amount of colonic stool, otherwise unremarkable -Aggressive bowel regimen started -ECHO results reviewed -Continue PPI for 2 weeks -EGD as an outpatient procedure. No urgency for GI evaluation at this time. OK to discharge per GI service. -To be clear, I held nephrotoxic meds (lasix, spironolactone, losartan as rise in cr 1.3 to 2.0) I asked the nurse to notify primary team. <Abraham Bynum V - Last Filed: 11/15/17 23:14> Objective - Vital Signs/Intake and Output Vital Signs (last 24 hours): Temp Pulse Resp BP Pulse Ox 97.8 F 65 20 140/70 96 11/15/17 06:00 11/15/17 06:32 11/15/17 06:00 11/15/17 14:43 11/15/17 06:00 - Labs Labs: 11/15/17 07:30 11/15/17 07:30 Attending/Attestation - Attestation I have personally seen and examined this patient.: Yes I have fully participated in the care of the patient.: Yes I have reviewed all pertinent clinical information, including history, physical exam and plan: Yes Notes (Text): This is an addendum to GI progress report dictated by the GI Fellow.The patient was seen and examined earlier. Medical records, lab studies, imagings were reviewed. Last 24 hours events reviewed. Agreed with the above treatment plan as outlined in GI Fellow 's notes with the addition of the following Patient still has constipation has begun moving her bowls Elective EGD as an outpatient Continue Empiric PPI therapy 11/15/17 23:13
--- NOTE | 2017-11-14 10:54 | PN ---
DATE: 11/13/2017 SUBJECTIVE: The patient is [id number] female. The patient was seen on 11/13/2017. Looking comfortable. Still complaining about pain on both shoulders and lower abdomen. No nausea, vomiting. No diarrhea. No hematuria. Went for stress test today and CAT scan of the abdomen. PHYSICAL EXAMINATION: VITAL SIGNS: Temperature 98.3, pulse 80 , respiratory rate 18, blood pressure 135/79, pulse oximetry 97%. HEENT: Head normocephalic, atraumatic. Eyes PERRLA. Extraocular muscles intact. Conjunctivae clear. Nose patent. Mucous membrane moist. NECK: Supple. No carotid bruit. No JVD or thyromegaly. CHEST: Bilaterally symmetrical. HEART: S1 and S2 positive. LUNGS: Clear to auscultation. ABDOMEN: Soft. EXTREMITIES: No edema. No cyanosis. NEUROLOGIC: The patient is awake, alert, moving all four extremities. No focal deficits. MEDICATIONS: Lasix, Lidoderm, Cozaar, Lopressor, multivitamins, Protonix, spironolactone. LABORATORY DATA: White blood cells 7.8, hemoglobin 12.6, hematocrit 38.7, platelets 227. Sodium 137, potassium 4.5, BUN 13, creatinine 2, glucose 114. ASSESSMENT AND PLAN: Ms. Marcie Garcia is a 77-year-old female with anemia, renal insufficiency, hyperglycemia, came with epigastric pain, radiating to the right shoulder, history of hypertension, gastritis, appendectomy, history of ventral hernia repair, cataract surgery, chronic kidney disease, uncontrolled hypertension, very noncompliant with the medications. The patient went for stress test, results are pending. Discussion done with the patient and the patient#s nurse. Repeat labs. Lidoderm patch is given. We will follow up. Ana Ross MD MTDD
[2017-11-14 11:52] LABS: ALB/GLOB RATIO 1.1 (1.1-1.8); ALBUMIN 4.2 g/dL (3.0-4.8); CALCIUM 9.5 mg/dL (8.4-10.5)
--- NOTE | 2017-11-14 16:01 | PN ---
DATE: 11/14/2017 REASON FOR CONSULTATION: Cardiac evaluation for epigastric pain and right shoulder pain. SUBJECTIVE: This note is an addendum to initial progress note dictated by the nurse practitioner. The patient underwent a stress test, essentially normal. The patient did echo, also that shows ejection fraction 55%, moderate AR, MR, TR. The patient is complaining of pain in right shoulder, being evaluated by Dr. Romeo. Moderate valvular aortic stenosis. Stress test negative. We will discontinue telemetry. Aggressive medical treatment. Followup echo in 1-2 years to monitor for the patient's valvular heart disease recommended. We will discontinue telemetry. Thank you, Dr. Ross for providing us the opportunity in taking care of the patient Marcei Garcia. Júnior Staton MD cc: Ana Ross MD
--- NOTE | 2017-11-14 16:06 | MRI ---
Date of service: 11/14/2017 PROCEDURE: MRI Left Shoulder TECHNIQUE: Multiecho multiplanar sequences were performed through the left shoulder. No intravenous contrast. HISTORY: Pain. COMPARISON: None. FINDINGS: SUPRASPINATUS TENDON: No acute tear identified. Prominent inhomogeneous signal changes seen the distal and mid segments suggestive of marked tendinosis. Prominent healed partial tear also possibility. INFRASPINATUS TENDON: No acute tear identified. Limited tendinosis or healed partial tear identified distally. TERES MINOR TENDON: Intact without acute tear. SUBSCAPULARIS TENDON: Thickening and inhomogeneous signal changes are combine with local fluid suggesting likely prominent tendinosis or healed partial tear possible tenosynovitis. PROXIMAL PORTION OF THE LONG HEAD OF THE BICEPS TENDON: Intact without acute tear. GLENOID LABRUM: There is a marked loss in volume at the posterior and inferior labrum suspicious for postoperative change or even avulsion. Degenerative fraying is seen at the anterior labrum. JOINT EFFUSION: Trace subacromial bursitis is identified. No significant glenohumeral joint effusion grossly evident. [id number] inferior left subdeltoid effusion. Advanced chondromalacia is appreciate the glenohumeral joint with limited subluxation of the left humeral head cephalad. Mild osteophyte development is appreciated as well as cortical sclerosis compatible degenerative glenohumeral arthrosis. ACROMIOCLAVICULAR JOINT SPACE: Marked degenerative changes seen the acromioclavicular joint however there are no significant inferior osteophytes. Prominent superior osteophytes are identified instead. OSSEOUS STRUCTURES: Moderate fibrocystic changes seen at the anterior left humeral head. No acute fracture or bone contusion appreciable. OTHER FINDINGS: None. IMPRESSION: 1. No definite acute cyst supraspinatus or infraspinatus tendon tear although healed partial tear of the subscapularis tendon along with extensive tendinosis is suggested. Tenosynovitis is also questioned related to the subscapularis tendon. 2. Volume loss at the posterior and inferior labrum suggests postoperative change or possible ulcer although no free fragment is appreciable. Degenerative fraying is seen at the anterior labrum. Moderately advanced osteoarthritis glenohumeral joint as well as the acromioclavicular joint. 3. Minimal subacromial and [id number] subdeltoid bursitis.
--- NOTE | 2017-11-14 20:31 | PN ---
DATE: 11/14/2017 PULMONARY PROGRESS NOTE REFERRING PHYSICIAN: Ana Ross MD SUBJECTIVE: She is lying in the bed, head at 45 degrees. Left shoulder is much better, complaining was neck area, right shoulder, upper back, right-sided. Had a stress test done today. No nausea, no abdominal pain. No leg pain or leg swelling. OBJECTIVE: GENERAL: In no acute distress. VITAL SIGNS: Temperature is 98, heart rate 62, respiratory rate is 18, blood pressure 180/72, and pulse ox 98% on room air. HEENT: Moist mucous membrane. Crowded airway. Mallampati score is 4. NECK: Supple. No JVD. LUNGS: Fair airflow with rhonchi. HEART: S1 and S2. ABDOMEN: Soft, nontender. No organomegaly. EXTREMITIES: No edema. NEUROLOGIC: Awake, alert, and follows simple commands. Has a right shoulder and upper back tenderness. MEDICATIONS: She is on Colace 100 mg twice a day, lidocaine patch to affected area, metoprolol tartrate 50 mg twice a day, MiraLax 17 g twice a day, Protonix 40 mg daily, multivitamins daily. LABORATORY DATA: Reviewed. Sodium 136, potassium 4.4, chloride 99, bicarbonate 25. BUN 39, creatinine 1.7. Glucose 124. Calcium is 9.5. AST 26, ALT 26, alk phos is 92. Albumin is 4.2. TSH 0.43. Has an MRI of the left shoulder done today, no evidence of acute cystitis, supraspinatus or infraspinatus tendon tear, although yielded a partial tear of the suprascapular tendon along with extensive tendinosis suggested. Tenosynovitis is also question related to the suprascapular tendon. Volume loss of the posterior and inferior labrum suggested postoperative changes, possible ulcer, although no free fragment is appreciated. Degenerative fraying is seen at the anterior labrum, moderately advanced osteoarthritis, glenohumeral joint as well as the acromioclavicular joint, minimal subacromial and [id number] subdeltoid bursitis. Has abdominal and pelvic CT done, which is unremarkable. Myocardial stress test is nondiagnostic. IMPRESSION AND PLAN: Valvular heart disease, pulmonary hypertension, may have sleep apnea syndrome, renal insufficiency, hyperglycemia, hypertension, severe degenerative joint disease mostly involving the shoulder muscles, status post steroid injection of the left shoulder. May add prednisone 20 mg one dose today and then 5 mg daily for few days for severe arthritis. Keep head at 45 degrees. Sleep apnea precaution. Thank you and we will follow with you. Júnior Moses MD
--- NOTE | 2017-11-14 21:49 | PN ---
DATE: 11/14/2017 SUBJECTIVE: The patient was seen and examined on the bedside on 11/14/2017, looking comfortable. Progress notes are for 11/14/2017. Still complaining of pain in the right shoulder, got intraarticular injection in the left shoulder by Dr. Romeo. MRI of the shoulder done. Has bowel movement. As per GI, the patient has bad constipation. No fever. No chills. No headache. No dizziness. PHYSICAL EXAMINATION: VITAL SIGNS: Temperature 98.9, pulse 51, respiratory rate 20, blood pressure 155/76, pulse oximetry 96. HEENT: Head normocephalic, atraumatic. Eyes PERRLA. Extraocular muscles intact. Conjunctivae clear. Nose patent. Mucous membrane moist. NECK: Supple. No carotid bruit. No JVD or thyromegaly. CHEST: Bilaterally symmetrical. HEART: S1 and S2 positive. LUNGS: Clear to auscultation. ABDOMEN: Soft. Bowel sounds positive. No organomegaly. EXTREMITIES: No edema. No cyanosis. NEUROLOGICAL: The patient is awake and alert. Moving all 4 extremities. No focal deficits. MEDICATIONS: Colace, Lidoderm, Lopressor, multivitamins, Protonix, MiraLax. LABORATORY DATA: White blood cells 7.8, hemoglobin 12.6, hematocrit 38.7, platelets 227. Sodium 137, potassium 4.5, BUN 38, creatinine 2, glucose 114. ASSESSMENT AND PLAN: Ms. Marcie Garcia, a 77-year-old lady with renal insufficiency, hyperglycemia, has epigastric pain, had constipation, hypertension, acute kidney injury on chronic kidney disease, right shoulder pain, left shoulder pain, status post intraarticular injection by Dr. Romeo and went for MRI, pulmonary hypertension. Assistant Attorney General consult called. Aortic and tricuspid valve disease. Abdominal ultrasound and CAT scan reviewed by me. Echocardiogram results reviewed. Continue with proton pump inhibitor. Esophagogastroduodenoscopy as outpatient procedure. As per Dr. Bynum, no urgency for GI evaluation at this time. Dr. Bynum held Lasix and spironolactone, losartan as rise in the creatinine . I appreciated that. Seen by Dr. Staton, Inorganic Chemistry Teacher. The patient went for stress test. Did echo, which shows ejection fraction of 55%. The patient has aortic stenosis. Stress test is negative. Dr. Staton discontinued the telemetry. Followup echo in 1-2 years to maintain the patient's valvular heart disease and recommendation. The patient is getting a local Lidoderm patch. Repeat labs. We will follow up. Ana Ross MD MTDJennifer
[2017-11-15 06:34] VITALS: PULSE 65
[2017-11-15] MEDS: Pantoprazole 40 mg EC Tab PO SCH (06:38)
[2017-11-15 07:55] LABS: HEMOGLOBIN 13.1 g/dL (12.0-16.0); MEAN CELL VOLUME 91.8 fl (80.0-105.0); MEAN CORPUSCULAR HGB CONC 32.7 g/dl (31.0-37.0); MEAN PLATELET VOLUME 10.2 fl (7.0-11.0); RBC 4.37 10^6/uL (3.5-6.1); RED CELL DISTRIBUTION WIDTH 13.6 % (11.5-14.5)
[2017-11-15 07:56] VITALS: RESP 20; TEMP 97.8; O2SAT 96
[2017-11-15 08:12] LABS: CALCIUM 9.1 mg/dL (8.4-10.5)
[2017-11-15] MEDS: Lidocaine 5% Patch TD SCH (09:24)
[2017-11-15] MEDS: POLYETHYLENE GLYCOL 3350 17 GM/Dose PACKET PO SCH (09:25)
[2017-11-15] MEDS: Multivitamin With Minerals Tab PO SCH (09:25)
[2017-11-15] MEDS ORDERED: predniSONE 5 mg/5 mL Oral Soln UD PO SCH ×2 (10:00)
[2017-11-15] MEDS ORDERED: Bupivacaine 0.5% Inj(30mL) IJ ONE (11:57)
[2017-11-15] MEDS ORDERED: MethylPREDNISolone Depo 40 mg/ml Inj IM ONE (11:57)
--- NOTE | 2017-11-15 13:21 | CP.PCM.PN ---
<Renato Sneed - Last Filed: 11/15/17 13:28> Subjective - Date & Time of Evaluation Date of Evaluation: 11/15/17 Time of Evaluation: 08:30 - Subjective Subjective: PGY5 GI Follow-up Pt seen and examined bedside slight abd pain BM yesterday Denies and fever, chills or diaphoresis ROS: 12 point ROS conducted, neg other than above Objective - Vital Signs/Intake and Output Vital Signs (last 24 hours): Temp Pulse Resp BP Pulse Ox 97.8 F 65 20 149/72 96 11/15/17 06:00 11/15/17 06:32 11/15/17 06:00 11/15/17 09:26 11/15/17 06:00 - Medications Medications: Current Medications Amlodipine Besylate (Norvasc) 10 mg PO DAILY [facility] Last Admin: 11/15/17 09:25 Dose: 10 mg Docusate Sodium (Colace) 100 mg PO BID [facility] Last Admin: 11/15/17 09:25 Dose: 100 mg Hydralazine HCl (Apresoline) 50 mg PO TID [facility] Ketorolac Tromethamine (Toradol) 15 mg IVP Q6 PRN PRN Reason: Pain, moderate (4-7) Stop: 11/20/17 10:57 Lactulose (Enulose) 30 gm PO DAILY [facility] Last Admin: 11/15/17 09:25 Dose: 30 gm Lidocaine (Lidoderm) 2 ea TD DAILY [facility] Last Admin: 11/15/17 09:24 Dose: 2 ea Metoprolol Tartrate (Lopressor) 50 mg PO BID [facility] Last Admin: 11/15/17 09:25 Dose: 50 mg Multivitamins/Minerals (Therapeutic-M Tab) 1 tab PO DAILY [facility] Last Admin: 11/15/17 09:25 Dose: 1 tab Pantoprazole Sodium (Protonix Ec Tab) 40 mg PO 0600 [facility] Last Admin: 11/15/17 06:38 Dose: 40 mg Polyethylene Glycol (Miralax) 17 gm PO BID [facility] Last Admin: 11/15/17 09:25 Dose: 17 gm Prednisone (Prednisone Oral Soln) 5 mg PO DAILY [facility] Last Admin: 11/15/17 10:26 Dose: 5 mg - Labs Labs: 11/15/17 07:30 11/15/17 07:30 - Constitutional Appears: Well, No Acute Distress - Head Exam Head Exam: ATRAUMATIC, NORMOCEPHALIC - Eye Exam Eye Exam: Normal appearance - ENT Exam ENT Exam: Mucous Membranes Moist, Normal Exam - Neck Exam Neck Exam: Normal Inspection - Respiratory Exam Respiratory Exam: Clear to Ausculation Bilateral, NORMAL BREATHING PATTERN. absent: Rales, Rhonchi, Wheezes, Respiratory Distress - Cardiovascular Exam Cardiovascular Exam: REGULAR RHYTHM, +S1, +S2 - GI/Abdominal Exam GI & Abdominal Exam: Soft, Tenderness, Normal Bowel Sounds. absent: Guarding, Rigid, Mass, Organomegaly - Extremities Exam Extremities Exam: absent: Joint Swelling, Pedal Edema - Neurological Exam Neurological Exam: Alert, Awake, Oriented x3 - Psychiatric Exam Psychiatric exam: Normal Affect, Normal Mood - Skin Skin Exam: Dry, Intact, Normal Color, Warm Assessment and Plan - Assessment and Plan (Free Text) Assessment: 77F with epigastric pain #Epigastric pain #Constipation #HTN #MARY on CKD #Right Shoulder pain #Pulmonary HTN - RVSP 53 #Aortic and Tricuspid Valvular disease PLAN: -Abdominal U/S normal -CT shows a large amount of colonic stool, otherwise unremarkable -Aggressive bowel regimen started -ECHO results reviewed -Continue PPI for 2 weeks -EGD as an outpatient procedure. No urgency for GI evaluation at this time. OK to discharge per GI service. -continue miralax and colace D/W Dr. Bynum <Abraham Bynum V - Last Filed: 11/15/17 23:15> Objective - Vital Signs/Intake and Output Vital Signs (last 24 hours): Temp Pulse Resp BP Pulse Ox 97.8 F 65 20 140/70 96 11/15/17 06:00 11/15/17 06:32 11/15/17 06:00 11/15/17 14:43 11/15/17 06:00 - Labs Labs: 11/15/17 07:30 11/15/17 07:30 Attending/Attestation - Attestation I have personally seen and examined this patient.: Yes I have fully participated in the care of the patient.: Yes I have reviewed all pertinent clinical information, including history, physical exam and plan: Yes Notes (Text): This is an addendum to GI progress report dictated by the GI Fellow.The patient was seen and examined earlier. Medical records, lab studies, imagings were reviewed. Last 24 hours events reviewed. Agreed with the above treatment plan as outlined in GI Fellow 's notes with the addition of the following Feels better plans to be DC today Patient was advised to followup in the office and schedule for EGD 11/15/17 23:14
[2017-11-15 14:50] VITALS: BP 140/70
--- NOTE | 2017-11-17 08:25 | CON ---
DATE: 11/15/2017 ORTHOPEDIC CONSULT AND PROCEDURE REPORT The patient is in room 365, bed 1, complaining of right shoulder pain. Pain has been there for severe weeks. X-rays show subacromial impingement suggestive of partial rotator cuff tear with a type 3 acromion in the right shoulder. She has tenderness even to palpation and has difficulty sleeping at night with limited range of motion, so because of her age of 77, I went ahead and inject her right shoulder with Depo-Medrol and Marcaine for symptomatic relief. I explained her if it continues, she may need a surgical procedure to repair partial tear of rotator cuff to help her subacromial impingement by removing the bursal tissue and shaving the undersurface of the clavicle as the AC joint needs to be excised and that would also help her. I will see her in the office soon. She would like to be discharged with final diagnoses of subacromial impingement in the right shoulder with bursitis in the right shoulder, partial rotator cuff tear, and mild AC joint arthritis, but has functional range of motion. Jose Romeo DO
== END 2017-11-15 16:48 | disposition home or self-care (01) | DRG 291 ==
LOC: ED 16:25 → ERH 18:39 → 2RSO 22:23 → OBSVTOIN 11-12 22:35 → 3RNO 11-14 11:25
PROVIDERS: ADMIT Internal Medicine; ATTEND Internal Medicine
DX: I13.0 Hypertensive heart and chronic kidney disease with heart failure and stage 1 through stage 4 chronic kidney disease, or unspecified chronic kidney disease (principal); I50.33 Acute on chronic diastolic (congestive) heart failure; N17.9 Acute kidney failure, unspecified; R10.13 Epigastric pain; Z91.14 Patient's other noncompliance with medication regimen; M19.012 Primary osteoarthritis, left shoulder; M19.011 Primary osteoarthritis, right shoulder; M75.102 Unspecified rotator cuff tear or rupture of left shoulder, not specified as traumatic; M75.42 Impingement syndrome of left shoulder; N18.9 Chronic kidney disease, unspecified; I42.9 Cardiomyopathy, unspecified; I27.20 Pulmonary hypertension, unspecified; G47.30 Sleep apnea, unspecified; D64.9 Anemia, unspecified; I08.2 Rheumatic disorders of both aortic and tricuspid valves; K59.00 Constipation, unspecified; M19.90 Unspecified osteoarthritis, unspecified site; M75.51 Bursitis of right shoulder; Z90.49 Acquired absence of other specified parts of digestive tract; Z53.9 Procedure and treatment not carried out, unspecified reason

== ENCOUNTER 2018-04-13 13:29 | Outpatient (CLI) | payer MEDICARE | END 2018-04-13 13:30 | disposition home or self-care (01) | LOC: RAD 13:29 ==